=== PATIENT | male | born 1950 | race Hispanic/Latino ===

== ENCOUNTER 2022-01-17 10:41 | Outpatient (CLI) | payer BC ==
[2022-01-17 12:29] LABS: Hemoglobin 14.5 g/dL (13.5-17.5); Mean Corpuscular HGB CONC 34.8 g/dL (32.0-36.0); Mean Corpuscular Volume 89.1 fl (81.2-95.1); Mean Platelet Volume 11.1 fl (7.4-10.4); Platelet Count 201 10x3/uL (150-450); RBC Distribution Width 12.7 % (11.5-14.5); Red Blood Cell (RBC) Count 4.68 10x6/uL (4.32-5.72)
[2022-01-17 12:59] LABS: INR-International Normal Ratio 0.9; PTT 25.9 sec (22.0-33.0)
[2022-01-17 13:01] LABS: Anion Gap 17 mmol/L (10-20); BUN (Urea Nitrogen) 21 mg/dL (8.4-25.7); Calc. Creatinine Clearance 0 mL/min (70-130); Calcium 9.3 mg/dL (7.8-10.44); Carbon Dioxide 21 mmol/L (23-31); Chloride 105 mmol/L (98-107); Glucose 299 mg/dL (80-115); Potassium 4.1 mmol/L (3.5-5.1); Sodium 139 mmol/L (136-145)
[2022-01-18 00:19] LABS: SARS-CoV-2 PCR by NAA Not Detected (NotDetected)
== END 2022-01-17 10:42 | disposition home or self-care (01) ==
LOC: CSHLAB 10:41
PROVIDERS: ATTEND Specialist
DX: Z01.818 Encounter for other preprocedural examination (principal); Z20.822 Contact with and (suspected) exposure to COVID-19
CPT/HCPCS: 80048; 85027; 85610; 85730; 93005; 93010; U0003; U0005

== ENCOUNTER 2022-01-20 09:51 | Observation (INO) | payer BC ==
[2022-01-20] MEDS ORDERED: Heparin 10,000 UNITS/ 10 ML VIAL ONE ×2 (10:30→10:54)
[2022-01-20] MEDS ORDERED: Adenosine 6 MG/2 ML VIAL ONE (10:30)
[2022-01-20] MEDS ORDERED: Nitroglycerin 50 MG/250 ML BOT 250 ML ONE (10:30)
[2022-01-20] MEDS ORDERED: Lidocaine 2% PF 5 ML VIAL ONE (10:34)
[2022-01-20] MEDS ORDERED: Ascorbic Acid 500 mg Chewable Tablet ONE (10:42)
[2022-01-20] MEDS ORDERED: Aspirin 325 MG TAB ONE (10:42)
[2022-01-20 10:48] VITALS: TEMP 97.7
[2022-01-20] MEDS ORDERED: Midazolam HCl 5 mg/5 ml Vial ONE (10:48)
[2022-01-20] MEDS ORDERED: Fentanyl 100 MCG/2 ML VIAL ONE (10:48)
[2022-01-20] MEDS ORDERED: Lidocaine 2% 20 ml MDV ONE (10:50)
[2022-01-20] MEDS ORDERED: TICAGRELOR 90 MG TABLET ONE (12:24)
[2022-01-20] MEDS ORDERED: Iopamidol 300 61% 100 ML VIAL FS ONE (14:55)
[2022-01-20 20:00] VITALS: BP 154/77
== END 2022-01-20 21:05 | disposition home or self-care (01) ==
LOC: CSHCCL 09:51 → CSHTELE 18:14
PROVIDERS: ADMIT Specialist; ATTEND Specialist
DX: I25.118 Atherosclerotic heart disease of native coronary artery with other forms of angina pectoris (principal); I10 Essential (primary) hypertension; E11.51 Type 2 diabetes mellitus with diabetic peripheral angiopathy without gangrene; I70.213 Atherosclerosis of native arteries of extremities with intermittent claudication, bilateral legs; E78.2 Mixed hyperlipidemia; E11.21 Type 2 diabetes mellitus with diabetic nephropathy; I25.2 Old myocardial infarction; Z95.1 Presence of aortocoronary bypass graft; Z79.82 Long term (current) use of aspirin; Z88.5 Allergy status to narcotic agent; Z20.822 Contact with and (suspected) exposure to COVID-19
CPT/HCPCS: 92928; 92978; 92979; 93005; 93010; 93459; 99152; 99153; C1753; C1760; C1769; C1874; C9600; J0153; J1644; J2001; J2250; J3010; Q9967

== ENCOUNTER 2023-02-11 14:05 | Emergency (ER) | payer BC ==
[2023-02-11 15:52] LABS: #Basophils 0.1 10x3/uL (0.0-0.2); #Eosinphils 0.2 10x3/uL (0.0-0.5); #Monocytes 0.8 10x3/uL (0.0-1.1); #Neutrophils 5.9 10x3/uL (1.5-8.4); %Basophils 0.6 % (0.0-2.0); %Eosinophils 2.2 % (0.0-6.0); %Lymphocytes 23.3 % (18.0-47.0); %Monocytes 8.8 % (0.0-10.0); %Neutrophils 64.9 % (40.0-75.0); Hemoglobin 13.1 g/dL (13.5-17.5); Mean Corpuscular HGB CONC 34.3 g/dL (32.0-36.0); Mean Corpuscular Hemoglobin 30.5 pg (27.0-33.0); Mean Corpuscular Volume 88.8 fl (81.2-95.1); Mean Platelet Volume 10.2 fl (7.4-10.4); Platelet Count 228 10x3/uL (150-450); RBC Distribution Width 13.5 % (11.5-14.5)
[2023-02-11 16:05] LABS: ALT (SGPT) 15 U/L (8-55); AST (SGOT) 18 U/L (5-34); Albumin 3.8 g/dL (3.4-4.8); Alkaline Phosphatase 104 U/L (40-110); Anion Gap 14 mmol/L (10-20); BUN (Urea Nitrogen) 29 mg/dL (8.4-25.7); Bilirubin, Total 0.4 mg/dL (0.2-1.2); Calc. Creatinine Clearance 0 mL/min (70-130); Calcium 8.8 mg/dL (7.8-10.44); Carbon Dioxide 23 mmol/L (23-31); Chloride 106 mmol/L (98-107); Estimated GFR 64; Globulin 3.1 g/dL (2.4-3.5); Glucose 261 mg/dL (83-110); Potassium 4.5 mmol/L (3.5-5.1); Protein, Total 6.9 g/dL (5.8-8.1); Sodium 138 mmol/L (136-145)
== END 2023-02-11 17:05 | disposition home or self-care (01) ==
LOC: CSHERS 14:05
DX: E11.42 Type 2 diabetes mellitus with diabetic polyneuropathy (principal); I10 Essential (primary) hypertension
CPT/HCPCS: 36415; 80053; 83605; 85025